=== PATIENT | male | born 1995 | race Two or more races ===

== ENCOUNTER 2023-04-27 17:42 | Emergency (ER) | payer OTHER ==
[~2023-04-27] VITALS: Ht 167.6 cm; Wt 150.0 kg
[2023-04-27 18:18] VITALS: BP 139/80; PULSE 60; RESP 18; TEMP 98.1; O2SAT 96
[2023-04-27] MEDS ORDERED: TETANUS-DIPTH-ACEL PERTUSSIS 0.5ML SYR Tdap IM ONE (19:15)
[2023-04-28 09:15] LABS: Hepatitis B Surface Antibody Positive (Negative)
== END 2023-04-27 19:31 | disposition home or self-care (01) ==
LOC: ER 17:42
DX: S61.235A Puncture wound without foreign body of left ring finger without damage to nail, initial encounter (principal); W26.8XXA Contact with other sharp object(s), not elsewhere classified, initial encounter; Y93.89 Activity, other specified; Y92.89 Other specified places as the place of occurrence of the external cause; Y99.8 Other external cause status
CPT/HCPCS: 36415; 86703; 86706; 86803; 87340; 90471; 90715